=== PATIENT | male | born 1965 | race Two or more races ===

== ENCOUNTER 2022-06-12 08:14 | Emergency (ER) | payer OTHER ==
[~2022-06-12] VITALS: Ht 180.3 cm; Wt 90.7 kg
[2022-06-12] MEDS ORDERED: AMLODIPINE-VAL1 EACH (08:27)
== END 2022-06-12 13:02 | disposition home or self-care (01) ==
LOC: ER 08:14
DX: R10.10 Upper abdominal pain, unspecified (principal); I10 Essential (primary) hypertension; Z88.0 Allergy status to penicillin

== ENCOUNTER 2022-09-28 09:34 | Emergency (ER) | payer OTHER ==
[~2022-09-28] VITALS: Ht 180.3 cm; Wt 90.7 kg
[~2022-09-28 09:34] MED LIST: AMLODIPINE-VAL1 EACH
== END 2022-09-28 13:00 | disposition home or self-care (01) ==
LOC: ER 09:34
DX: S61.411A Laceration without foreign body of right hand, initial encounter (principal); W25.XXXA Contact with sharp glass, initial encounter; Y93.89 Activity, other specified; Y92.018 Other place in single-family (private) house as the place of occurrence of the external cause; Y99.9 Unspecified external cause status; Z88.0 Allergy status to penicillin